=== PATIENT | female | born 1950 | race Caucasian/White ===

== ENCOUNTER 2016-10-23 13:28 | Emergency (ER) | payer MEDICARE, OTHER | END 2016-10-23 14:25 | disposition home or self-care (01) | LOC: ER 13:28 | DX: J10.1 Influenza due to other identified influenza virus with other respiratory manifestations (principal); J45.909 Unspecified asthma, uncomplicated; K21.9 Gastro-esophageal reflux disease without esophagitis | CPT/HCPCS: 87502 ==